=== PATIENT | female | born 2000 | race Caucasian/White ===

== ENCOUNTER 2024-04-22 11:46 | Emergency (ER) | payer SELFPAY ==
[~2024-04-22] VITALS: Ht 165.1 cm; Wt 68.0 kg
[2024-04-22 11:58] VITALS: BP 143/77; PULSE 75; RESP 18; TEMP 98.1; O2SAT 97
[2024-04-22] MEDS ORDERED: OFLOS LEFT EYE (12:19)
== END 2024-04-22 12:24 | disposition home or self-care (01) ==
LOC: MED 11:46
DX: H10.9 Unspecified conjunctivitis (principal); Z79.899 Other long term (current) drug therapy; Z88.8 Allergy status to other drugs, medicaments and biological substances
CPT/HCPCS: 99283

== ENCOUNTER 2024-07-01 13:54 | Emergency (ER) | payer MEDICAID, OTHER ==
[~2024-07-01] VITALS: Ht 162.6 cm; Wt 52.2 kg
[~2024-07-01 13:54] MED LIST: OFLOS LEFT EYE
[2024-07-01 14:00] VITALS: BP 102/57; PULSE 74; RESP 16; TEMP 98.3; O2SAT 98
[2024-07-01 14:45] LABS: APPEARANCE,URINE HAZY (CLEAR); BILIRUBIN,URINE NEGATIVE (NEGATIVE); BLOOD, URINE TRACE-I (NEGATIVE); COLOR,URINE YELLOW (YELLOW); LEUKOCYTE ESTERASE ,URINE 2+ (NEGATIVE); NITRITE, URINE NEGATIVE (NEGATIVE); PH,URINE 6.5 (5.0-9.0); PROTEIN,URINE NEGATIVE (NEGATIVE); UGLUCOSE NEGATIVE (NEGATIVE); UROBILINOGEN,URINE 0.2 EU/dL (0.2 - 1)
[2024-07-01 14:47] LABS: BACTERIA,URINE 1+ /HPF (None Seen); RBC,URINE 0-5 /HPF (0-5)
[2024-07-01 14:48] LABS: MUCUS,URINE None Seen /LPF (None Seen); SQUAMOUS EPITHELIAL CELL,UR 4-10 (MOD) /LPF (0-3 (FEW))
[2024-07-01] MEDS ORDERED: CEPH-588 PO (14:50)
== END 2024-07-01 14:55 | disposition home or self-care (01) ==
LOC: MED 13:54
DX: N39.0 Urinary tract infection, site not specified (principal); Z79.899 Other long term (current) drug therapy; Z88.8 Allergy status to other drugs, medicaments and biological substances
CPT/HCPCS: 81001; 81025; 87086; 99283

== ENCOUNTER 2024-08-24 00:29 | Emergency (ER) | payer OTHER ==
[~2024-08-24] VITALS: Ht 162.6 cm; Wt 69.4 kg
[~2024-08-24 00:29] MED LIST changes: +CEPH-588 PO
[2024-08-24 00:52] VITALS: BP 115/65; PULSE 79; RESP 16; TEMP 98.3; O2SAT 98
== END 2024-08-24 02:40 | disposition left against medical advice (07) ==
LOC: MED 00:29
DX: N64.4 Mastodynia (principal); R21 Rash and other nonspecific skin eruption; Z53.21 Procedure and treatment not carried out due to patient leaving prior to being seen by health care provider; Z88.8 Allergy status to other drugs, medicaments and biological substances